=== PATIENT | female | born 1970 | race Caucasian/White ===

== ENCOUNTER 2019-03-08 08:47 | Inpatient (IN) ==
[2019-03-08] MEDS ORDERED: NS 1,000 ML IV ONE ×2 (09:14→11:01)
[2019-03-08] MEDS ORDERED: ZOFRAN IV ONE (09:14)
--- NOTE | 2019-03-08 09:15 | PROVIDER DOCUMENTATION ---
HPI-General Adult - General Chief Complaint: Abdominal Pain Stated Complaint: RT SIDE PAIN,VOMITING,DIABETIC Time Seen by Provider: 03/08/19 09:05 Source: patient Allergies/Adverse Reactions: Patient Allergies Allergy/AdvReac Type Severity Reaction Status Date / Time codeine [Codeine] Allergy Mild NAUSEA/VOMI Verified 03/08/19 09:24 TING Home Medications: Home Medication List Medication Instructions Recorded Confirmed Last Taken Type Hydrocodone/Acetaminophen [[place] 1 tab PO TID 03/23/17 03/08/19 03/08/19 History 7.5-325 Tablet] LISINOpril [Prinivil] 20 mg PO DAILY 03/08/19 03/08/19 03/07/19 History - History of Present Illness -Gen Adult Nature of Presenting Problems: 48yof presents to ED c/o Rt flank pain with N/V x2 days. She states she is a diabetic with history of renal failure. She denies fever/chills/diarrhea/abd pain. Location of Pain/Injury: reports: back (Rt lower) Pain Radiation: reports: no radiation Quality of Pain: reports: aching, dull Severity: reports: mild Onset/Duration: reports: gradual, 2 days ago Timing: reports: still present Context/Activities at Onset: reports: none Modifying Factors: improves with: nothing Associated Symptoms: reports: nausea, vomiting Similar Symptoms Previously?: Yes (with kidney failure) Recently seen or treated by another doctor?: No Review of Systems - Adult - REVIEW OF SYSTEMS - ADULT Constitutional: reports: no symptoms reported Eyes: reports: no symptoms reported Ears, Nose, Mouth & Throat: reports: no symptoms reported Cardiovascular: reports: no symptoms reported Respiratory: reports: no symptoms reported Gastrointestinal: reports: see HPI, nausea, vomiting Genitourinary: reports: see HPI, dysuria Musculoskeletal: reports: see HPI, back pain (Rt lower) Integumentary: reports: no symptoms reported Neurological: reports: no symptoms reported Psychiatric: reports: no symptoms reported Endocrine: reports: no symptoms reported Hematologic/Lymphatic: reports: no symptoms reported Allergic/Immunologic: reports: no symptoms reported Past History - Adult - PAST MEDICAL HISTORY-ADULT Review of Records: reports: Old Records Reviewed, Nursing Assessment Review, Medications Reviewed Major Childhood Illnesses: reports: denies history Cardiovascular: reports: HTN, hyperlipidemia Respiratory: reports: COPD Gastrointestinal: reports: GERD Obstetrical/Gynecological: reports: denies history Genitourinary: reports: denies history Musculoskeletal: reports: chronic pain (DJD) Neurological: reports: denies history Psychiatric: reports: anxiety, bipolar, depression, ptsd Endocrine/Immune: reports: Diabetes Other Conditions: reports: denies history - PRIOR SURGERIES/PROCEDURES Surgical/Procedure History: reports: hysterectomy, BTL, other (bladder tact) - PRIOR HOSPITALIZATIONS Prior Hospitalizations: reports: none - IMMUNIZATION STATUS Childhood Immunizations: See Nurse Assessment Flu Vaccine: See Nurse Assessment - FAMILY HISTORY Family History: diabetes, lung disease, mental illness, HTN, other (Brother had [place] 35) - SOCIAL HISTORY Living Situation: family Physical Exam-General - PHYSICAL EXAM-ADULT Initial Vital Signs Reviewed: Yes - CONSTITUTIONAL General Appearance: appears well, alert, no apparent distress - EYES Eyes: PERRL/EOMI, pink conjunctivae - HEAD, EARS, NOSE, MOUTH & THROAT HENMT: normocephalic/atraumatic, normal ENT inspection, TMs normal, pharynx normal, other (Dry MM) - NECK Neck: non-tender, full range of motion, supple, normal inspection - RESPIRATORY Respiratory: chest non-tender, lungs clear, normal breath sounds, no pleuratic chest pain, no respiratory distress, no accessory muscle use - CARDIOVASCULAR Cardiovascular: normal peripheral pulses, regular rate, rhythm, no edema, no gallop, no JVD - GASTROINTESTINAL (ABDOMEN) Abdominal Exam: normal bowel sounds, non tender, soft, no organomegaly - LYMPHATIC Lymphatic: no adenopathy - MUSCULOSKELETAL Back Exam: normal inspection, no vertebral tenderness, CVA tenderness (Right) Extremity: normal range of motion, non-tender, normal gait, normal inspection, no pedal edema, no calf tenderness - SKIN Integumentary: normal color, normal turgor, warm/dry - NEUROLOGIC 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, grossly normal, no motor/sensory deficits - PSYCHIATRIC Psych/Mental Status: normal mood/affect, normal thought content, normal thought process, oriented x 3 Progress - PLAN OF CARE/RESULTS Progress/Plan/Lab Results: Vital Signs - 8 hr 03/08/19 08:55 Temperature 98.1 F Pulse Rate 116 H Respiratory Rate 18 Blood Pressure 130/84 O2 Sat by Pulse Oximetry 96 Orders Category Date Time Status ED: Urine Bedside NOW Care 03/08/19 09:[address] RENAL STONE SEARCH [CT] Stat Exams 03/08/19 09:14 Ordered CBC WITH DIFF [HEME] Stat Lab 03/08/19 09:14 Uncollected COMPREHENSIVE METABOLIC PANEL [CHEM] Stat Lab 03/08/19 09:14 Uncollected URINALYSIS W/POSS RFLX CULT [URINALYSIS] Stat Lab 03/08/19 09:14 Uncollected Ns 1000 ml IV Bolus X1 Med 03/08/19 09:14 Ordered 0.9% Sodium Chloride Inj [Ns] 1,000 ml IV 999 mls/hr Ondansetron [Zofran] Med 03/08/19 09:14 Once 4 mg IV NOW ONE Result Diagrams: 03/08/19 09:53 03/08/19 09:53 - REASSESSMENT Reassessment #1 Time Reassessed: 13:00 (Discussed pt with Alicia, Hospitalist HARSHA; she recommends admit, IV Rocephin and IV fluids. 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 Disposition: ADMITTED INPATIENT 09 Certified Medical Emergency: Emergent Condition: Stable Referrals and Follow-Ups: Rodriguez Childers MD [Primary Care Provider] - Discharge Education: Steps to Quit Smoking, [id number] - Critical Care Note This patient required my direct & personal management of CC.: No Attestation - Physician/ TROY Attestation Patient care was provided by Advanced Practice Provider:: Yes Advanced Practice Provider:: Martita Damon Advanced Practice Provider documentation review:: The Mid-level provider documentation, treatment plan and medical decision making was reviewed by the physician who agrees with all treatment and medical decision making by the MLP. The physician spent face to face time with patient:: No Advanced Practice Provider documentation review:: Supervising physician onsite and consulted in the evaluation and care of this patient. The physician did not have a face to face encounter with the patient.
--- NOTE | 2019-03-08 09:58 | Diag Imaging Result Doc PS360 ---
EXAM: CT RENAL STONE SEARCH - 03/08/2019 HISTORY: Rt flank pain TECHNIQUE: CT renal stone search without contrast COMPARISON: 03/23/2017 FINDINGS: There is no hydronephrosis or perinephric edema identified. There is no renal stone identified. There is a small fat-containing anterior abdominal wall hernia to the right of midline at the midabdomen, similar to prior. There is no bowel containing hernia identified. There is no evidence of bowel obstruction. The appendix is unremarkable. There is no free air. The gallbladder is mildly prominent in size. There are no calcified gallstones or pericholecystic inflammation seen. There are chronic bilateral L5 pars interarticularis defects noted similar to prior. There is a 1 cm nodular opacity at the anterior medial left lower lobe lung. This measures 74 Hounsfield units in density which is borderline for early calcification, suggesting that it may represent a granuloma. This is not visible on the prior exam, or on the 04/21/2015 CT abdomen/pelvis. IMPRESSION: No evidence of renal stone or hydronephrosis. 1 cm nodule at anterior medial left lower lobe lung, with possible early calcification. Follow-up by CT thorax is recommended. This exam was performed using automated exposure control, adjustment of mA or kV according to patient size, and/or use of iterative reconstruction technique. Electronically signed by J Carlos Cabrera 03/08/2019 9:56 AM
[2019-03-08 10:13] LABS: BASO# 0.11 X1000 (0.0-0.2); BASO% 0.7 % (0.0-0.8); EOS# 0.02 X1000 (0.0-0.7); EOS% 0.1 % (0.0-10.0); HEMOGLOBIN 15.2 g/dL (12.0-16.0); IMM GRAN# 0.07 X1000 (0.0-0.04); IMM GRAN% 0.4 % (0.0-0.5); LYMPH# 2.91 X1000 (1.2-3.4); LYMPH% 18.3 % (20.5-51.1); MCH 29.7 PG (27-31); MCHC 33.8 g/dL (33-37); MCV 88.1 FL (81-99); MONO# 1.54 X1000 (0.11-0.59); MONO% 9.7 % (1.7-9.3); MPV 9.6 FL (7.4-10.4); NEUT# 11.28 X1000 (1.4-6.5); NEUT% 70.8 % (42.2-75.2); PLT 339 X1000 (130-400); RBC 5.11 XMIL (4.2-5.4); RDW 13.2 % (11.5-14.5); WBC 15.93 X1000 (4.8-10.8)
[2019-03-08 10:24] LABS: ALB/GLOB RATIO 1.3; ALBUMIN 4.5 g/dL (3.5-5.0); CALCIUM 9.7 mg/dL (8.8-10.2); CREATININE 2.1 mg/dL (0.5-0.9); POTASSIUM 3.7 mmol/L (3.5-5.1); TOTAL BILIRUBIN 0.37 mg/dL (0.20-1.00)
[2019-03-08 10:52] LABS: URINE SOURCE CLEAN CATCH
[2019-03-08 10:56] LABS: BILIRUBIN URINE SMALL (NEGATIVE); BLOOD URINE TRACE (NEGATIVE); COLOR YELLOW; GLUCOSE URINE NEGATIVE (NEGATIVE); KETONE URINE NEGATIVE (NEGATIVE); LEUKOCYTES URINE LARGE (NEGATIVE); NITRITE URINE NEGATIVE (NEGATIVE); PH URINE 5.5; PROTEIN URINE 200 mg/dL (NEGATIVE); SP GRAVITY URINE 1.024; TURBIDITY URINE TURBID (CLEAR); UROBILINOGEN URINE 3 mg/dL (NORMAL)
[2019-03-08 10:59] LABS: UR EPITHELIAL CELLS >10 /HPF (<10); URINE BACTERIA NEGATIVE /HPF; URINE RBC <10 /HPF (<10); URINE WBC TNTC /HPF (<10)
[2019-03-08] MEDS ORDERED: ROCEPHIN 1 GM in NS 50 ML IV ONE (11:01)
[2019-03-08] MEDS ORDERED: ZOFRAN IV PRN (13:50)
[2019-03-08] MEDS ORDERED: TYLENOL PO PRN (13:55)
[2019-03-08] MEDS ORDERED: NS 1,000 ML IV SCH (14:00)
[2019-03-08] MEDS ORDERED: ROCEPHIN 1 GM in NS 50 ML IV SCH (14:00)
--- NOTE | 2019-03-08 15:59 | Diag Imaging Result Doc PS360 ---
EXAM: CT THORAX W/O CONTRAST HISTORY: lung nodule TECHNIQUE: CT chest without contrast COMPARISON: None. FINDINGS: No pleural effusions. No cardiomegaly. No aortic aneurysm. No enlarged nodes. There is a 9 to 10 mm noncalcified nodule in the left lower lobe adjacent to the heart. No other lung nodules. No infiltrates. No bronchiectasis. IMPRESSION: Left lower lobe pulmonary nodule This exam was performed using automated exposure control, adjustment of mA or kV according to patient size, and/or use of iterative reconstruction technique. Electronically signed by Oswaldo Parisi 03/08/2019 3:57 PM
[2019-03-08] MEDS: DUONEB (A & A) INH SCH ×3 (16:31→23:16)
[2019-03-08] MEDS: NICODERM PATCH TD SCH (17:28)
[2019-03-08] MEDS: NS 1,000 ML IV SCH (17:35)
[2019-03-08] MEDS: NORCO-7.5 PO SCH ×2 (18:40→21:25)
[2019-03-08] MEDS: MAXIPIME 1 GM in NS 50 ML IV SCH (21:26)
[2019-03-09 00:52] LABS: UR CREAT RANDOM 127.9 mg/dL (11-20)
[2019-03-09] MEDS: DUONEB (A & A) INH SCH ×6 (03:40→23:11)
--- NOTE | 2019-03-09 04:09 | HISTORY AND PHYSICAL ---
CHIEF COMPLAINT: Right lower quadrant pain, right low back pain. HISTORY OF PRESENT ILLNESS: This is a 48-year-old female who presents to the emergency room complaining of right lower back, right lower quadrant pain and nausea/vomiting for 2 days. She denied any fevers, chills, any abdominal pain, any diarrhea or constipation. PAST MEDICAL HISTORY: Chronic obstructive pulmonary disease, diabetes mellitus, hyperlipidemia, hypertension, anxiety, depression, and reported bipolar disorder. PAST SURGICAL HISTORY: Hysterectomy, tubal ligation. SOCIAL HISTORY: She smokes about a pack a day. She drinks alcohol. She denies any illicit drug use. ALLERGIES: Codeine which causes nausea and vomiting. HOME MEDICATIONS: A list will be obtained by the nursing staff and, once verified, will review and restart as appropriate. REVIEW OF SYSTEMS: Discussed with patient with pertinent positives stated in the HPI. She denied any syncope, dizziness, any chest pain or palpitations, any shortness of breath, cough, fever, chills, any night sweats, recent weight loss or weight gain, any diarrhea, constipation, black or bloody vomitus or stools, any hematuria, dysuria, frequency or urgency. PHYSICAL EXAMINATION: GENERAL: This is a 48-year-old female who is lying on the stretcher in the emergency room in no distress. VITAL SIGNS: Blood pressure is 135/70 with a heart rate of 82, respirations 20, temperature is 98.2 degrees, with room air saturations 96 to 98%. HEENT: Head is normocephalic, atraumatic. Mucous membranes are moist. NECK: Supple. Trachea midline. CARDIOVASCULAR: Regular rate and rhythm. S1 and S2 are appreciated. Peripheral pulses are palpable x4 extremities. She has no murmurs, rubs, murmurs or gallops. PULMONARY: She has wheezes scattered throughout. Chest rises and falls symmetric with respiration. Chest wall is nontender to palpation. GASTROINTESTINAL: Abdomen is soft, nontender, nondistended with bowel sounds in all 4 quadrants. NEUROLOGIC: She is alert and oriented x3. SKIN: Warm and dry. LABS: WBC is 15.9 with hemoglobin 15.2, hematocrit 45, and platelets of 339,000. Sodium 136, potassium 3.7, BUN 19, creatinine 2.1 with a blood sugar 118. Urinalysis reveals large leukocytes with sla-[id number]-ud-count white blood cells, greater than 10 epithelial cells with negative bacteria, which is consistent with a contaminated specimen. Urine culture and blood cultures are pending. IMAGING: Renal CT revealed no evidence of renal stone or hydronephrosis. A 1 cm nodule at the anterior medial left lower lobe of her lung with possible early calcification. Followup by CT of the thorax. ASSESSMENT AND PLAN: 1. Right lower quadrant and right low back to buttocks pain. 2. Chronic obstructive pulmonary disease. 3. Hypertension. 4. History of bipolar disorder, on no medication. 5. History of diabetes mellitus, on no medications. PLAN: 1. The patient will be admitted to the hospital. She will be placed on telemetry. Will give supplemental oxygen if needed. We will check urine, electrolytes, daily CBC. We will check a renal profile daily. Give DuoNeb q.4 hours with antibiotic coverage of cefepime. Will give gentle IV hydration. Continue her Christiana as prescribed. Start NicoDerm patch. 2. We will get a CT of the thorax without contrast. 3. For deep venous thrombosis prophylaxis, will use Lovenox. 4. For GI prophylaxis, Prilosec. Patient was examined and plan was discussed with Dr. Fisher. Further treatments pending hospital course. Dictated by HARSHA Jones for Kirsten Fisher MD cc: HARSHA Jones MD
[2019-03-09] MEDS: NORCO-7.5 PO SCH ×3 (05:50→21:14)
[2019-03-09] MEDS: NS 1,000 ML IV SCH ×4 (05:51→21:15)
[2019-03-09 08:12] LABS: BASO# 0.03 X1000 (0.0-0.2); BASO% 0.4 % (0.0-0.8); EOS% 1.2 % (0.0-10.0); HEMATOCRIT 38.8 % (37.0-47.0); HEMOGLOBIN 12.9 g/dL (12.0-16.0); LYMPH# 3.21 X1000 (1.2-3.4); LYMPH% 38.5 % (20.5-51.1); MCH 30.1 PG (27-31); MCHC 33.2 g/dL (33-37); MCV 90.7 FL (81-99); MONO# 0.72 X1000 (0.11-0.59); MONO% 8.6 % (1.7-9.3); MPV 9.7 FL (7.4-10.4); NEUT# 4.28 X1000 (1.4-6.5); NEUT% 51.3 % (42.2-75.2); PLT 292 X1000 (130-400); RBC 4.28 XMIL (4.2-5.4); RDW 13.1 % (11.5-14.5); WBC 8.34 X1000 (4.8-10.8)
[2019-03-09 08:27] LABS: AGAP 10; BUN 14 mg/dL (8-22); CHLORIDE 106 mmol/L (98-107); COSMO 279; CREATININE 0.8 mg/dL (0.5-0.9); ESTIMATED GFR > 60; GLUCOSE 112 mg/dL (70-104); POTASSIUM 3.8 mmol/L (3.5-5.1); SODIUM 139 mmol/L (136-145); TCO2 23 mmol/L (25-35)
[2019-03-09] MEDS ORDERED: VITAMIN D PO SCH (09:00)
[2019-03-09] MEDS: MAXIPIME 1 GM in NS 50 ML IV SCH ×2 (09:36→21:14)
[2019-03-09] MEDS: NICODERM PATCH TD SCH (09:37)
[2019-03-09] MEDS: PRILOSEC PO SCH (09:37)
[2019-03-09] MEDS: LOVENOX SUBQ SCH (09:37)
[2019-03-10] MEDS: DUONEB (A & A) INH SCH ×6 (03:23→23:44)
[2019-03-10] MEDS: NS 1,000 ML IV SCH ×3 (05:31→20:58)
[2019-03-10] MEDS: NORCO-7.5 PO SCH ×3 (06:27→21:01)
--- NOTE | 2019-03-10 07:04 | CONSULTATION ---
DATE OF CONSULTATION: 03/09/2019 CHIEF COMPLAINT: Urinary retention, weakened urine stream. HISTORY OF PRESENT ILLNESS: Ms. Siegel is a 48-year-old who presented in consultation regarding sensation of incomplete emptying, recurrent urinary tract infections and elevated PVR's. The patient states that she has a history of lower pelvic pain and pressure with difficulty emptying her bladder. She presented to the emergency room yesterday complaining of right lower back and low abdominal pain, nausea and vomiting. She says she has had several episodes of this in the past, which is usually due to urinary tract infection. It leads to difficulty with urination as well as voiding complaints. She said she has a history of a hysterectomy and a bladder tack performed greater than 15 years ago. She has had some issues with urination since then. She endorsed several episodes where her renal function worsened with creatinine elevated to the 2s, and will improve with hydration and antibiotics. She denies any blood in her urine or urine incontinence. She feels like she is having an urinary tract infection currently. She states occasionally she will have some fever with her UTIs, but clinically will have suprapubic pain and lower pelvic pain. She denies seeing a urologist previously, but had been recommended to follow-up with the urologist approximately 6 months ago. She follows up with a multifocal button inspector, Dr. Marin, regarding episodes of acute kidney injury. She feels like she has been voiding small volumes. She feels that she is not emptying her bladder completely. PAST MEDICAL HISTORY: 1. Chronic obstructive pulmonary disease. 2. Diabetes. 3. Hyperlipidemia. 4. Hypertension. 5. Anxiety. 6. Depression. 7. Bipolar disorder. PAST SURGICAL HISTORY: 1. Hysterectomy. 2. Tubal ligation. 3. Bladder tack. ALLERGIES: Codeine. HOME MEDICATION: 1. [place] 7.5/325 mg. 2. Lisinopril. 3. Glucophage 1 tablet daily. SOCIAL HISTORY: Smokes cigarettes daily. Occasional alcohol use. Denies any illicit drug use. Previously used marijuana. REVIEW OF SYSTEMS: A 12 point review of systems performed with all pertinent positives and negatives in HPI. PHYSICAL EXAMINATION: Vital Signs: Temperature 99.5 degrees, heart rate 95, blood pressure 178/88, oxygen saturation 100% on room air. General: No evidence of acute distress. Resting comfortably in bed. Alert and oriented x3. Respiratory: Good respiratory effort without audible wheezing or rales. HEENT: Normocephalic, atraumatic. Pupils equal, reactive to light. Neck: Trachea midline with no obvious masses. Cardiovascular: Regular rate and rhythm. No obvious lower extremity edema. GI: Abdomen is soft, nontender, nondistended. : No suprapubic tenderness. No CVA tenderness. Pelvic exam preformed with nurse: Shows normal external genitalia. Urethral meatus is orthotopic. No palpable urethral masses. The bladder appears to be well supported with no palpable adnexal masses or adnexal tenderness. No evidence of any rectocele or cystocele. Good apical support. No palpable mesh is exposed or extruded in the vagina itself. The patient has normal perineal sensation with no palpable rectal masses. Neurologic: Gross motor and sensory intact. Skin: Multiple tattoos present with no obvious skin lesions or rashes. Musculoskeletal: Moving all extremity. LABS: White cell count 8.3, hemoglobin 12.9, hematocrit 38.8, platelets 292. Sodium 139, potassium 3.8, chloride 106, bicarbonate 23. BUN 14, creatinine 0.8, glucose 112. Yesterday creatinine was 2.1. Urinalysis on presentation shows trace blood, a small amount of bilirubin and large amount of leukocytes with too numerous to count white blood cells, greater than 10 epithelial cells, and negative for bacteria. IMAGING: CT of abdomen and pelvis performed with no obvious nephrolithiasis or hydronephrosis. The patient's bladder is decompressed with no significant retention seen. ASSESSMENT AND PLAN: Ms. Siegel is a 48-year-old who presented to the hospital complaining of right flank and abdominal pain. The patient had a CT stone search yesterday, which showed no obvious stones, hydronephrosis, renal mass, and a decompressed bladder. The patient continues to complain of some lower pelvic pain and feeling of incomplete emptying. The patient's PVR today was 0 and 9 mL when I scanned her with the bladder scanner. The patient seems to be emptying her bladder adequately. No obvious etiologies were found on pelvic exam today to describe her current symptoms. The patient did have a small amount of blood in her urine and had an elevated creatinine on presentation of 2.1. I think this was likely related to dehydration as her platelets and white blood cell count significantly improved as well. Uncertain what is leading to this episode, she has been followed by Nephrology previously. No palpable masses or exposed mesh were seen within the pelvis itself on pelvic exam today. Likely would recommend outpatient cystoscopy to assess for etiology of hematuria after negative upper tract imaging. We will continue to monitor from a urologic standpoint. Please call with questions or concerns. cc: Amilcar Hughes MD MTDMarlen
[2019-03-10 08:33] LABS: BASO# 0.05 X1000 (0.0-0.2); BASO% 0.6 % (0.0-0.8); EOS# 0.21 X1000 (0.0-0.7); EOS% 2.6 % (0.0-10.0); HEMATOCRIT 37.1 % (37.0-47.0); HEMOGLOBIN 12.3 g/dL (12.0-16.0); IMM GRAN# 0.02 X1000 (0.0-0.04); IMM GRAN% 0.2 % (0.0-0.5); LYMPH# 3.39 X1000 (1.2-3.4); LYMPH% 41.2 % (20.5-51.1); MCH 30.1 PG (27-31); MCHC 33.2 g/dL (33-37); MCV 90.9 FL (81-99); MONO# 0.51 X1000 (0.11-0.59); MONO% 6.2 % (1.7-9.3); MPV 9.8 FL (7.4-10.4); NEUT# 4.05 X1000 (1.4-6.5); NEUT% 49.2 % (42.2-75.2); PLT 293 X1000 (130-400); RBC 4.08 XMIL (4.2-5.4); WBC 8.23 X1000 (4.8-10.8)
[2019-03-10 08:57] LABS: AGAP 11; ALBUMIN 3.8 g/dL (3.5-5.0); BUN 11 mg/dL (8-22); CALCIUM 9.1 mg/dL (8.8-10.2); CHLORIDE 107 mmol/L (98-107); COSMO 282; CREATININE 0.8 mg/dL (0.5-0.9); ESTIMATED GFR > 60; GLUCOSE 122 mg/dL (70-104); PHOSPHORUS 2.7 mg/dL (2.7-4.5); POTASSIUM 3.9 mmol/L (3.5-5.1); SODIUM 141 mmol/L (136-145); TCO2 23 mmol/L (25-35)
[2019-03-10] MEDS: MAXIPIME 1 GM in NS 50 ML IV SCH ×2 (11:07→20:52)
[2019-03-10] MEDS: NICODERM PATCH TD SCH (11:08)
[2019-03-10] MEDS: LOVENOX SUBQ SCH (11:08)
[2019-03-10] MEDS: PRILOSEC PO SCH (11:09)
[2019-03-10] MEDS ORDERED: TUSSIONEX LIQUID PO ONE (11:29)
--- NOTE | 2019-03-10 12:47 | Diag Imaging Result Doc PS360 ---
CHEST-2 VIEWS - 03/10/2019 INDICATION: dyspnea COMPARISON: 05/02/2018 FINDINGS: The lungs are normally expanded and clear. Heart size and mediastinal contours are normal. No pneumothorax or pleural effusion. IMPRESSION: Negative exam. Electronically signed by Moy Calderón 03/10/2019 12:45 PM
--- NOTE | 2019-03-10 13:02 | PROGRESS NOTE ---
DATE: 03/10/2019 SUBJECTIVE: No acute events overnight. The patient continues urinating without issue. She states that she overall is feeling better. She denies any significant suprapubic or lower pelvic pain this morning. She denies any burning or dysuria. The patient has been tolerating p.o. intake, and remains hydrated. OBJECTIVE: Vital signs: Temperature 98.1 degrees, heart rate 104, blood pressure 124/74, and oxygenation 99% on room air. General: No acute distress. Resting comfortably in bed. Alert and oriented x3. Respiratory: Good respiratory effort without audible wheeze or rales. Abdomen: Soft. Nontender, nondistended. : No suprapubic tenderness. No CVA tenderness. LABORATORY: White blood cell count 8.2, hemoglobin 12.3, hematocrit 37.1, and platelets 293,000. Sodium 141, potassium 3.9, chloride 107, bicarb 23, BUN 11, creatinine 0.8, and glucose 122. MICROBIOLOGY: Shows no pathologic growth from her urine culture. Blood cultures have shown no growth at 48 hours. ASSESSMENT AND PLAN: Ms. Siegel is a 48-year-old who presents for evaluation of concern for urinary retention with weakened urinary stream. The patient has history of chronic obstructive pulmonary disease, diabetes, hyperlipidemia, hypertension, anxiety, depression, and bipolar. Overall, patient seems to be doing better. Renal function remains stable at 0.8. She is voiding and seems to be emptying adequately. Performed a bladder scan yesterday which showed 0 and 9 mL in her bladder. Uncertain what is leading to her episodes of dehydration and acute kidney injury. She states she was recently seen at [facility] and treated for urinary tract infection. The patient's urine culture here shows no pathologic growth. The patient's most recent cultures at [facility] have also shown no evidence of pathologic growth. Uncertain if the patient is really having true infections as all the cultures here have been negative over the past several years. Will try to get culture results from [facility]. Would plan for her to follow up in the outpatient setting, and discuss voiding as well as consideration for cystoscopy. From urologic standpoint, the patient likely could be discharged at the discretion of the primary care team. We will continue to monitor from a urologic standpoint. Please call with questions or concerns. cc: Amilcar Hughes MD [facility]
[2019-03-10] MEDS: SOLU-MEDROL IV SCH ×2 (15:14→20:52)
[2019-03-10] MEDS: DIFLUCAN PO SCH (15:14)
[2019-03-10] MEDS: FLONASE NAS SCH (15:24)
--- NOTE | 2019-03-10 19:45 | PROGRESS NOTE ---
DATE: 03/10/2019 SUBJECTIVE: The patient complains of postnasal drip and a continuous cough. OBJECTIVE: Vital Signs: Temperature 97.5 degrees, blood pressure 158/85, heart rate 82, respirations 19, O2 saturation 100% on room air. General: This is an overweight female lying in bed in no acute distress. Heart: S1, S2 normal. Regular rate and rhythm. Lungs clear to auscultation bilaterally. Abdomen: Positive bowel sounds. Soft, nontender, nondistended. Extremities: No edema, no cyanosis. Neurologic: The patient is alert and oriented x3. LABORATORY DATA: Labs reviewed and within normal limits. ASSESSMENT AND PLAN: 1. Acute chronic obstructive pulmonary disease exacerbation. Continue with bronchodilator therapy. We will add intravenous steroids. 2. Recurrent urinary tract infections. Continue on the current antibiotic regimen. The patient has improved clinically. The patient will follow up with Dr. Hughes as outpatient for possible cystoscopy. 3. Vitamin D deficiency. Continue with vitamin D replacement. 4. Tobacco dependence. The patient has been counseled about smoking cessation. 5. Yeast infection. We will start the patient on Diflucan. 6. Constipation. We will start the patient on MiraLAX and Colace. 7. Left lower lobe pulmonary nodule. Aware. Pulmonary follow up as outpatient. 8. Deep vein thrombosis prophylaxis. Continue on Lovenox. cc: Kirsten Fisher MD MTDD
[2019-03-10] MEDS: TUSSIONEX LIQUID PO SCH (20:53)
[2019-03-10] MEDS: COLACE PO SCH (20:54)
[2019-03-10] MEDS: MIRALAX PO SCH (20:54)
[2019-03-11] MEDS: DUONEB (A & A) INH SCH ×3 (03:41→12:01)
[2019-03-11] MEDS: NORCO-7.5 PO SCH (05:10)
[2019-03-11] MEDS: SOLU-MEDROL IV SCH (05:10)
[2019-03-11 07:36] LABS: HEMATOCRIT 37.6 % (37.0-47.0); HEMOGLOBIN 12.7 g/dL (12.0-16.0); MCH 30.4 PG (27-31); MCHC 33.8 g/dL (33-37); MPV 10.2 FL (7.4-10.4); RBC 4.18 XMIL (4.2-5.4); RDW 12.9 % (11.5-14.5); WBC 11.16 X1000 (4.8-10.8)
[2019-03-11 07:56] LABS: AGAP 13; ALBUMIN 3.9 g/dL (3.5-5.0); BUN 14 mg/dL (8-22); CALCIUM 9.2 mg/dL (8.8-10.2); CHLORIDE 107 mmol/L (98-107); COSMO 284; CREATININE 0.7 mg/dL (0.5-0.9); ESTIMATED GFR > 60; GLUCOSE 132 mg/dL (70-104); PHOSPHORUS 2.6 mg/dL (2.7-4.5); SODIUM 141 mmol/L (136-145); TCO2 21 mmol/L (25-35)
[2019-03-11] MEDS: MAXIPIME 1 GM in NS 50 ML IV SCH (10:36)
[2019-03-11] MEDS: COLACE PO SCH (10:37)
[2019-03-11] MEDS: TUSSIONEX LIQUID PO SCH (10:37)
[2019-03-11] MEDS: NICODERM PATCH TD SCH (10:37)
[2019-03-11] MEDS: MIRALAX PO SCH (10:37)
[2019-03-11] MEDS: PRILOSEC PO SCH (10:37)
[2019-03-11] MEDS: LOVENOX SUBQ SCH (10:38)
[2019-03-11] MEDS: FLONASE NAS SCH (10:38)
[2019-03-11] MEDS: DIFLUCAN PO SCH (10:38)
[2019-03-11 12:32] VITALS: BP 147/74
--- NOTE | 2019-03-12 04:48 | PROGRESS NOTE ---
DATE: 03/09/2019 SUBJECTIVE: The patient is resting comfortably. She states that she still feels kind of weak and shaky today. OBJECTIVE: Vital signs: Temperature 98.6 degrees, blood pressure 136/71, heart rate 96, respirations 15, O2 saturation 99% on room air. General: This is an overweight female sitting in bed in no acute distress. Heart: S1, S2 normal, regular rate and rhythm. Lungs: Equal air entry bilaterally. No wheezing. No rales. No rhonchi. Abdomen: Positive bowel sounds, soft, nontender, nondistended. Extremities: No edema, no cyanosis. Neurologic: The patient is alert and oriented x4. LABORATORIES: Reviewed and within normal limits. ASSESSMENT AND PLAN: 1. Recurrent urinary tract infections. So far, the urine culture is showing no growth. The patient states that she feels much better after receiving IV fluids and antibiotics. We will consult with the urologist for further recommendations. The patient reports that she has been having frequent episodes of urinary retention whenever she has a urinary tract infection. 2. Acute kidney injury. Resolved. We will decrease the IV fluids. 3. Tobacco dependence. The patient has been counseled about smoking cessation. 4. Hypertension. Stable. 5. Diabetes mellitus type 2. Hemoglobin A1c is 6. Continue on the current regimen. 6. Vitamin D deficiency. Continue with vitamin D replacement. 7. Left lower lobe pulmonary nodule. We will refer the patient to a assembler dielectric heater as an outpatient to follow this nodule. 8. Deep vein thrombosis prophylaxis. Continue on Lovenox. cc: Kirsten Fisher MD
== END 2019-03-11 13:46 | disposition home or self-care (01) | DRG 683 ==
LOC: ED 08:47 → EDIPHOLD 08:47 → OBSVTOIN 15:51 → 3N 18:34
PROVIDERS: ATTEND Internal Medicine